=== PATIENT | female | born 1980 | race Caucasian/White ===

== ENCOUNTER → 2018-05-25 | Outpatient (CLI) | payer BC ==
[2018-05-25 20:27] LABS: EOS # 0.2 (0.04-0.40); EOS % 2.6 % (1.0-5.0); HEMATOCRIT 41.6 % (37.0-47.0); HEMOGLOBIN 13.8 g/dL (12.5-16.0); LYMPH# 2.2 (1.50-4.00); MEAN CELL VOLUME 90 fl (78-100); MEAN CORPUSCULAR HEMOGLOBIN 30 pg (27-31); MEAN CORPUSCULAR HGB CONC 33 g/dL (33-37); MONO # 0.7 (0.20-0.80); PLATELET COUNT 242 K/mm3 (130-400); RED BLOOD COUNT 4.64 M/mm3 (4.10-5.30); WHITE BLOOD COUNT 7.1 K/mm3 (4.8-10.8)
[2018-05-25 20:46] LABS: ALBUMIN 4.7 g/dL (3.5-5.0); CALCIUM 9.6 mg/dL (8.4-10.2); POTASSIUM 4.1 mmol/L (3.6-5.0); TOTAL BILIRUBIN 0.4 mg/dL (0.2-1.3); TOTAL PROTEIN 7.7 g/dL (6.3-8.2)
== END ==
LOC: LAB 16:26
PROVIDERS: Family Medicine
DX: Z00.00 Encounter for general adult medical examination without abnormal findings (principal); R53.83 Other fatigue

== ENCOUNTER → 2020-09-12 | Outpatient (CLI) | payer BC | LOC: LAB 11:29 | DX: U07.1 COVID-19 (principal) ==

== ENCOUNTER → 2021-02-05 | Outpatient (CLI) | payer BC | LOC: RAD 10:52 | DX: S99.911A Unspecified injury of right ankle, initial encounter (principal) ==

== ENCOUNTER → 2021-07-30 | Outpatient (CLI) | payer BC ==
[2021-07-30 11:03] LABS: BASO # 0.03 K/mm3 (0.02-0.10); EOS # 0.16 K/mm3 (0.04-0.40); EOS % 3.1 % (1.0-5.0); HEMATOCRIT 42.3 % (37.0-47.0); HEMOGLOBIN 13.6 g/dL (12.5-16.0); MEAN CELL VOLUME 91 fl (78-100); MEAN CORPUSCULAR HEMOGLOBIN 29 pg (27-31); MEAN CORPUSCULAR HGB CONC 32 g/dL (33-37); MEAN PLATELET VOLUME 10.9 fl (7.4-10.4); MONO # 0.49 K/mm3 (0.20-0.80); NEU # 2.78 K/mm3 (1.40-6.50); PLATELET COUNT 243 K/mm3 (130-400); RED BLOOD COUNT 4.67 M/mm3 (4.10-5.30); RED CELL DISTRIBUTION WIDTH 12.8 % (11.5-14.5); WHITE BLOOD COUNT 5.2 K/mm3 (4.8-10.8)
[2021-07-30 11:13] LABS: POTASSIUM 4.2 mmol/L (3.5-5.1)
[2021-07-30 11:14] LABS: ALBUMIN 4.6 g/dL (3.5-5.0)
[2021-07-30 11:15] LABS: CALCIUM 9.7 mg/dL (8.3-10.5)
[2021-07-30 11:16] LABS: TOTAL PROTEIN 7.5 g/dL (6.4-8.3)
[2021-07-30 11:18] LABS: TOTAL BILIRUBIN 0.3 mg/dL (0.2-1.2)
== END ==
LOC: LAB 10:43
PROVIDERS: Family Medicine
DX: Z00.00 Encounter for general adult medical examination without abnormal findings (principal); E78.5 Hyperlipidemia, unspecified

== ENCOUNTER → 2023-06-02 | Outpatient (CLI) | payer OTHER | LOC: RAD 09:00 | DX: N93.9 Abnormal uterine and vaginal bleeding, unspecified (principal) ==

== ENCOUNTER → 2024-03-04 | Outpatient (CLI) | payer OTHER ==
[2024-03-04 13:46] LABS: URINE APPEARANCE CLEAR (CLEAR); URINE COLOR ORANGE (YELLOW); URINE PROTEIN(semi-quant) NEGATIVE (NEGATIVE)
[2024-03-04 13:47] LABS: URINE BILIRUBIN NEGATIVE (NEGATIVE); URINE BLOOD TRACE-INTACT (NEGATIVE); URINE GLUCOSE TRACE (NEGATIVE); URINE KETONE NEGATIVE (NEGATIVE); URINE LEUKOCYTE ESTERASE TRACE (NEGATIVE); URINE NITRATE POSITIVE (NEGATIVE)
== END ==
LOC: LAB 13:21
PROVIDERS: Family Medicine
DX: N39.0 Urinary tract infection, site not specified (principal)